=== PATIENT | female | born 1990 ===

== ENCOUNTER → 2019-07-30 | Outpatient (REF) | payer OTHER ==
[2019-08-04 08:20] LABS: HPV HYBRID CAPTURE II Positive (Negative)
== END ==
LOC: M LAB REF 17:01
PROVIDERS: ATTEND Advanced Practice Midwife
DX: R87.612 Low grade squamous intraepithelial lesion on cytologic smear of cervix (LGSIL) (principal)
CPT/HCPCS: 87624; G0123

== ENCOUNTER → 2019-08-23 | Outpatient (REF) | payer OTHER | LOC: M LAB REF 12:53 | PROVIDERS: ATTEND Obstetrics & Gynecology | DX: N87.0 Mild cervical dysplasia (principal); N72 Inflammatory disease of cervix uteri ==